=== PATIENT | male | born 1945 | race Hispanic/Latino ===

== ENCOUNTER 2020-02-05 15:02 | Outpatient (CLI) | payer MEDICARE ==
--- NOTE | 2020-02-05 16:18 | MRI ---
MRI OF THE LUMBAR SPINE: 02/05/20 PROVIDED CLINICAL HISTORY: Lumbar radiculopathy. FINDINGS: Five lumbar vertebral bodies are assumed. Lumbar alignment appears normal. Vertebral body heights are preserved. No focal concerning regional marrow signal abnormality. The conus medullaris is normal in signal and terminates at an appropriate level. Bilateral renal T2 hyperintensity statistically refle cts cysts but are incompletely characterized on the bases of this study. At L1-2, there is no significant central canal or foraminal narrowing apparent. At L2-3, end plate degenerative changes and a broad based disc bulge are seen without evidence for si gnificant central canal or foraminal narrowing. At L3-4, there is disc space height loss and end plate degenerative change with a broad based disc os teophyte complex and bilateral facet arthritis. There is effacement of the ventral spinal canal and a pproximation of the traversing L4 nerve roots within their lateral recesses. There is mild bilateral foraminal narrowing. At L4-5, there is a broad based disc bulge and bilateral facet arthritis. There is moderate/severe ce ntral canal stenosis. There is severe left and moderate right foraminal narrowing. At L5-S1, there is a broad based disc bulge with a superimposed central disc herniation. There is mod erate/severe central canal stenosis. There is severe bilateral left and moderate right foraminal john rowing. IMPRESSION: Advanced multilevel lumbar disc and facet degenerative change producing canal and foraminal narrowing as described. POS: FLAKITA
== END 2020-02-05 15:03 | disposition home or self-care (01) ==
LOC: TBSIIMAG 15:02
PROVIDERS: ATTEND Neurological Surgery
DX: M47.26 Other spondylosis with radiculopathy, lumbar region (principal); M51.16 Intervertebral disc disorders with radiculopathy, lumbar region; M48.061 Spinal stenosis, lumbar region without neurogenic claudication; M48.07 Spinal stenosis, lumbosacral region
CPT/HCPCS: 72148

== ENCOUNTER 2020-03-10 08:50 | Outpatient (CLI) | payer MEDICARE, OTHER ==
[2020-03-11 11:10] LABS: SARS-CoV-2 MS2 Positive; SARS-CoV-2 N Gene Negative; SARS-CoV-2 S Gene Negative; SARS-CoV-2 orf1ab Negative
== END 2020-03-10 08:51 | disposition home or self-care (01) ==
LOC: LABBT 08:50
PROVIDERS: ATTEND Neurological Surgery
DX: Z01.818 Encounter for other preprocedural examination (principal); Z11.59 Encounter for screening for other viral diseases; M48.061 Spinal stenosis, lumbar region without neurogenic claudication
CPT/HCPCS: 93005; U0003; 87635; 93010

== ENCOUNTER 2020-03-12 05:48 | Day surgery (SDC) | payer MEDICARE ==
[2020-03-10 15:21] VITALS: BMI 31.8
--- NOTE | 2020-03-11 13:20 | HP ---
HISTORY OF PRESENT ILLNESS: Mr. Macias is a very pleasant 75-year-old man referred to us for progressive bilateral lower extremity weakness and fatigue. This started early this year after being kicked by a cow to the left knee, but he feels he rehabbed and recovered well from this, though states that several weeks later that is when he developed a footdrop. This was soon followed by more proximal left lower extremity weakness and now he has come to have the same syndrome on the right lower extremity. He states that when he first gets up in the morning he does well, does not feel any of this fatigue or weakness, but then as the day progresses that becomes rather severe and he becomes dependent upon a walking stick or cane to ambulate. He does also have bilateral lower back pain and pain that radiates sharply into the bilateral buttocks, but this is intermittent in nature. We have a new MRI from [place] reveals rather profound spinal stenosis from L4-S1 that I feel is syndrome of symptoms. He states prior to this, he was having no trouble whatsoever. Examination is deferred for tele health visit. PAST MEDICAL HISTORY: Significant for hypertension, gout, prior cancer diagnosis. PAST SURGICAL HISTORY: Herniorrhaphy; knee replacements, bilateral; prostatectomy. CURRENT MEDICATIONS: 1. Aleve. 2. Levothyroxine. 3. Amlodipine. 4. Benazepril. ALLERGIES: NO KNOWN DRUG ALLERGIES. ASSESSMENT: Lumbar spinal stenosis and progressive neurologic decline. PLAN: Dr. Garibay met with the patient, reviewed imaging, and advocated for an L4-S1 decompression. He explained to the patient the risks, benefits, and alternatives to the procedure. The patient expressed understanding and would like to move forward with surgery as discussed. I do believe that the patient is mentally competent and capable of making medical decisions for himself. We will move forward with surgery as planned. Job ID: [id number]
[2020-03-12] MEDS ORDERED: EPINEPHrine 1 MG/ML AMP ONE (06:10)
[2020-03-12] MEDS ORDERED: Bupivacaine PF 0.5% 30 ML VIAL ONE (06:10)
[2020-03-12] MEDS ORDERED: Thrombin 5000 UNITS/5 ML VIAL ONE (06:10)
[2020-03-12] MEDS ORDERED: Fentanyl 100 MCG/2 ML VIAL ONE (06:31)
--- NOTE | 2020-03-12 08:54 | OP ---
DATE OF PROCEDURE: 03/12/2020 DIRECT MAIL MANAGER: Cisco Hartmann PA-C INDICATION: Pain. DIAGNOSIS: Lumbar stenosis with neurogenic claudication. PROCEDURE PERFORMED: L4 through S1 decompression. ANESTHESIA: General. DESCRIPTION OF PROCEDURE: The patient was brought into the operating room and placed under general anesthesia. He was flipped from the supine to prone position on the operating room table. A linear incision was planned spanning L4 through S1. After prepping and draping and after an appropriate operative pause, the incision was created. The soft tissues were swept away from midline. Self-retaining retractors were placed in the wound for optimal exposure. After confirming the appropriate level with C-arm fluoroscopy, an Adson rongeur was used to move the spinous process of L5, the inferior aspect of L4, and the superior aspect of S1. A high-speed cutting drill bit as well as 2, 3, and 4 mm Kerrisons were then used to complete the laminectomy spanning the L4-5 and L5-S1 segments. The laminectomy was extended laterally to encompass the medial aspect of the facet joints to further decompress the lateral recesses. After completing the decompression, the wound was irrigated. Hemostasis was maintained throughout. The wound was then closed in anatomic layers and a pressure dressing was applied. There were no known procedural complications. Job ID: [id number]
[2020-03-12] MEDS ORDERED: HYDROcodone/Acetaminophen 5/325 mg Tablet ONE (09:49)
[2020-03-12] MEDS ORDERED: Rocuronium Bromide 10 MG/ML (10ML VIAL) ONE (12:03)
[2020-03-12] MEDS ORDERED: Esmolol 100 MG/10 ML VIAL ONE (12:03)
[2020-03-12] MEDS ORDERED: EPHEDRINE 25 MG/5 ML SYRINGE ONE (12:03)
[2020-03-12] MEDS ORDERED: Dexamethasone 20 MG/5 ML VIAL ONE (12:03)
[2020-03-12] MEDS ORDERED: Ondansetron PF 4 MG/2 ML Vial ONE (12:03)
[2020-03-12] MEDS ORDERED: Ketorolac Tromethamine 30 MG/ML VIAL ONE (12:03)
[2020-03-12] MEDS ORDERED: Glycopyrrolate 0.2 MG/ML 5 ML SYRINGE ONE (12:03)
[2020-03-12] MEDS ORDERED: PROPOFOL 200 MG/20 ML VIAL ONE (12:03)
[2020-03-12] MEDS ORDERED: Lidocaine 1% PF 5 ML VIAL ONE ×2 (12:03)
== END 2020-03-12 11:20 | disposition home or self-care (01) ==
LOC: SDC 05:48
PROVIDERS: ATTEND Neurological Surgery
PROC: 01NB0ZZ Release Lumbar Nerve, Open Approach (ICD-10-PCS; principal; 2020-03-12)
DX: M48.062 Spinal stenosis, lumbar region with neurogenic claudication (principal); M54.16 Radiculopathy, lumbar region; M21.371 Foot drop, right foot; M21.372 Foot drop, left foot; I10 Essential (primary) hypertension; M10.9 Gout, unspecified; Z79.899 Other long term (current) drug therapy
CPT/HCPCS: 76000; J0171; J0690; J1100; J1885; J2001; J2405; J2704; J3010; S0020

== ENCOUNTER 2020-08-06 07:34 | Outpatient (CLI) | payer MEDICARE, OTHER ==
[2020-08-07 12:52] LABS: SARS-CoV-2 MS2 Positive; SARS-CoV-2 N Gene Negative; SARS-CoV-2 S Gene Negative; SARS-CoV-2 by NAA Not Detected (NotDetected); SARS-CoV-2 orf1ab Negative
== END 2020-08-06 07:35 | disposition home or self-care (01) ==
LOC: LABBT 07:34
PROVIDERS: ATTEND Neurological Surgery
DX: M48.02 Spinal stenosis, cervical region (principal); Z20.828 Contact with and (suspected) exposure to other viral communicable diseases
CPT/HCPCS: 87635; U0003

== ENCOUNTER 2020-08-11 06:25 | Inpatient (IN) | payer MEDICARE ==
[2020-08-11] MEDS ORDERED: Thrombin 5000 UNITS/5 ML VIAL ONE (06:37)
[2020-08-11] MEDS ORDERED: Fentanyl 250 MCG/5 ML VIAL ONE (07:47)
[2020-08-11] MEDS ORDERED: Tamsulosin HCl 0.4 MG CAP ONE (09:53)
[2020-08-11] MEDS ORDERED: Fentanyl 100 MCG/2 ML VIAL ONE (09:58)
--- NOTE | 2020-08-11 09:58 | OP ---
DATE OF PROCEDURE: 08/11/2020 ENROLLMENT SPECIALIST: Cisco Hartmann PA-C INDICATION FOR PROCEDURE: Prevent neurologic decline. DIAGNOSIS: Cervical spondylotic myelopathy. PROCEDURE PERFORMED: Anterior cervical diskectomy and fusion, C3-C4. ANESTHESIA: General. DESCRIPTION OF PROCEDURE: The patient was brought into the operating room and placed under general anesthesia. He was placed on table in supine position. A transverse incision was planned over the lateral aspect of the neck on the right. After prepping and draping and after an appropriate preoperative pause, the incision was created. The underlying platysma muscle identified and incised. A blunt tissue plane anterior to the sternocleidomastoid muscle was used to gain access to the prevertebral space. A C-arm image was obtained and confirming the appropriate level. After confirming the appropriate level, an annulotomy was performed at the C3-C4 disk space. Disk material as well as anterior and posterior osteophytes were removed. After completing the decompression, a 7-mm lordotic PEEK cage packed with allograft and autograft material was placed within the interbody space. A separate anterior cervical plate was then fashioned to the front of spine and secured with a total of 4 fixed screws. Midline and lateral structures were inspected and found to be free from significant trauma. The wound was irrigated. Hemostasis was maintained throughout. The wound was then closed in anatomic layers, and a pressure dressing was applied. There were no known procedural complications. Job ID: [id number]
[2020-08-11] MEDS ORDERED: PROPOFOL 200 MG/20 ML VIAL ONE (10:15)
[2020-08-11] MEDS ORDERED: Ondansetron PF 4 MG/2 ML Vial ONE (10:15)
[2020-08-11] MEDS ORDERED: PHENYLEPHRINE-NS 100 MCG/ML 10 ML SYRINGE ONE (10:15)
[2020-08-11] MEDS ORDERED: Lidocaine 1% PF 5 ML VIAL ONE (10:15)
[2020-08-11] MEDS ORDERED: Glycopyrrolate 0.2 MG/ML 5 ML SYRINGE ONE (10:15)
[2020-08-11] MEDS ORDERED: EPHEDRINE 25 MG/5 ML SYRINGE ONE (10:15)
[2020-08-11] MEDS ORDERED: Rocuronium Bromide 10 MG/ML (10ML VIAL) ONE (10:15)
[2020-08-11] MEDS ORDERED: Dexamethasone 20 MG/5 ML VIAL ONE (10:15)
[2020-08-11] MEDS ORDERED: Dexamethasone 4 mg/ml Vial ONE (10:43)
[2020-08-11 15:13] VITALS: BMI 27.3
[2020-08-11] MEDS ORDERED: tiZANidine HCl 4 MG TAB PO PRN (15:24)
[2020-08-11] MEDS ORDERED: Ondansetron PF 4 MG/2 ML Vial IVP PRN (15:24)
[2020-08-11] MEDS ORDERED: Mag-Al 1200 mg/1200 mg/30 ML UDCUP PO PRN (15:30)
[2020-08-11] MEDS ORDERED: diphenhydrAMINE 50 MG/ML VIAL IVP PRN (15:30)
[2020-08-11] MEDS ORDERED: Morphine 2 MG/ML VIAL SLOW IVP PRN (15:30)
[2020-08-11] MEDS ORDERED: Acetaminophen/Codeine 30-300mg Tablet PO PRN ×2 (15:30)
[2020-08-11] MEDS ORDERED: diphenhydrAMINE 25 MG CAP PO PRN (15:30)
[2020-08-11] MEDS ORDERED: Morphine 4 MG/ML VIAL SLOW IVP PRN (15:30)
[2020-08-11] MEDS ORDERED: Acetaminophen 325 MG TAB PO PRN (15:30)
[2020-08-11] MEDS ORDERED: Acetaminophen 650 MG Suppository PR PRN (15:30)
[2020-08-11] MEDS: Sodium Chloride 0.9% 1,000 ML IV SCH (15:38)
[2020-08-11] MEDS: CEFAZOLIN 2 GM in Premix Bag 1 BAG IVPB SCH (20:08)
[2020-08-12] MEDS: CEFAZOLIN 2 GM in Premix Bag 1 BAG IVPB SCH (03:46)
[2020-08-12] MEDS: Sodium Chloride 0.9% 1,000 ML IV SCH ×2 (04:06→18:00)
[2020-08-12] MEDS: Ketorolac Tromethamine 30 MG/ML VIAL IVP SCH ×3 (09:11→19:42)
[2020-08-12] MEDS: Tamsulosin HCl 0.4 MG CAP PO SCH (13:43)
[2020-08-12] MEDS ORDERED: FLU VACC QS2020-21(65YR UP)/PF 240 MCG/0.7 ML SYRINGE IM ONE (15:15)
[2020-08-13] MEDS: Ketorolac Tromethamine 30 MG/ML VIAL IVP SCH ×2 (01:47→08:27)
[2020-08-13] MEDS: Tamsulosin HCl 0.4 MG CAP PO SCH (03:04)
[2020-08-13] MEDS: Sodium Chloride 0.9% 1,000 ML IV SCH ×2 (04:51→19:32)
[2020-08-14] MEDS: Tamsulosin HCl 0.4 MG CAP PO SCH (05:41)
[2020-08-14] MEDS ORDERED: CEFAZOLIN 2 GM in Premix Bag 1 BAG IVPB SCH (09:15)
[2020-08-14] MEDS: Sodium Chloride 0.9% 1,000 ML IV SCH ×2 (11:18→16:10)
--- NOTE | 2020-08-14 12:33 | PRG ---
DATE OF SERVICE: 08/14/2020 Madeline Macias is a 75-year-old gentleman, known to me, for ACDF at C3-4 performed earlier this week. In the postoperative setting, he has had substantial degree of postoperative dysphagia. He has failed swallow evaluation, but does continue to improve. He failed another swallow evaluation yesterday. Given his overall lack of nutrition, I had a lengthy conversation with him and his both yesterday and today regarding placement of a PEG tube, which I believe to be a temporary measure. This will allow us to get him home in his home environment to continue to recover. Neurologically, he is doing great. He has been mobile as I would want him to be after surgery of this nature. I spoke with Dr. Malagon this morning. He will have a conversation with him about placing a PEG tube today with hopefully plans to discharge as early as today and not tomorrow. We do have dietary on board as well. Job ID: [id number]
[2020-08-14] MEDS ORDERED: PROPOFOL 200 MG/20 ML VIAL ONE (12:36)
--- NOTE | 2020-08-14 14:56 | OP ---
DATE OF PROCEDURE: 08/14/2020 PREPROCEDURE DIAGNOSES: 1. Oropharyngeal dysphagia after ACDF, hardware placement in cervical spine. 2. Concern for aspiration on modified barium swallow and Speech Pathology evaluation. POSTPROCEDURE DIAGNOSES: 1. Normal EGD. 2. PEG tube placement by Ponsky pull technique. ANESTHESIA: TIVA. PROPHYLAXIS: Ancef 2 g IV. RECOMMENDATIONS: 1. The patient and family education on tube feeds, use and cleaning of PEG. 2. Follow up in my office in 4 to 6 weeks for removal if no further issues with dysphagia. 3. He will be able to be discharged within 24 hours. PROCEDURE IN DETAIL: After the patient was informed of the risks, benefits, and possible complications of endoscopy including perforation, reaction to medication, and aspiration, informed consent was obtained. The patient was brought to endoscopy suite, where he was sedated in gradual fashion. Once he was comfortable, a bite block was placed in the incisural orifice. The endoscope was advanced through the bite block into the esophagus, stomach, into the second and third portions of the duodenum and slowly removed. There was good visualization of the mucosa. There were no abnormalities in the pharynx or proximal esophagus. The stomach and duodenum were normal to the 2nd and 3rd portions. Retroflexed views were normal. An adequate place for PEG tube placement was identified by finger indentation and transillumination, and the PEG tube was placed by Ponsky pull technique. Second-look confirmed good placement. The scope was removed. The patient tolerated the procedure well. There were no complications. Job ID: [id number]
[2020-08-15] MEDS: Tamsulosin HCl 0.4 MG CAP PO SCH (06:06)
[2020-08-15 07:35] VITALS: BP 118/72; TEMP 98.9
--- NOTE | 2020-08-15 10:15 | PRG ---
DATE OF SERVICE: 08/15/2020 Mr. Macias is now 5 days status post ACDF for cervical spondylotic myelopathy. His postoperative dysphagia and tongue dysfunction are improving, but not to the point where he can safely swallow. He did have a PEG tube placed yesterday. We will discharge him home today. Neurologically, he is grossly intact. His preoperative symptoms of myelopathy are improving. Specifically, he notes increased dexterity of the hands, less numbness, and more agility. The hypoglossal nerve palsy immediately preoperatively has improved substantially such that his tongue projects almost to midline at this point in time. He still has a slight degree of dysarthria. I am very optimistic that will continue to improve as well as the postoperative swelling from his high cervical ACDF. Job ID: [id number] [facility]
--- NOTE | 2020-08-15 17:53 | CON ---
DATE OF CONSULTATION: 08/15/2020 HISTORY: Mr. Correa is ready to go home. He has had education how to take care of his PEG and how to use it. He has seen a dietitian. PHYSICAL EXAMINATION: VITAL SIGNS: Stable. ABDOMEN: Soft, nontender. PEG tube site bumper loosened. ASSESSMENT: Status post PEG tube after dysphagia occurring in the postoperative state after an ACDF repair surgery. RECOMMENDATIONS: Tube feeds as long as needed. He can return to our office for problems with the PEG or to have the PEG removed after six weeks. Job ID: [id number]
--- NOTE | 2020-08-17 01:11 | PQF ---
CLINICAL DOCUMENTATION CLARIFICATION FORM: Dear : Carlos Manuel Garibay Date / Time: 08/17/2020 Please exercise your independent, professional judgment in responding to the clarification form. Clinical indicators are provided on the bottom of this form for your review Please check appropriate box(es): [ X ] Dysphagia is a complication of current anterior cervical diskectomy and fusion surgery [ ] Dysphagia is not a complication of current anterior cervical diskectomy and fusion surgery [ ] Other diagnosis [ ] Unable to determine In addition, please specify: Present on Admission (POA): [ ] Yes [X ] No [ ] Unable to determine To be completed by CDI/Coding staff for physician review: Present Clinical Indicators - Signs / Symptoms / Labs Results and Location in Medical Record [ x ] In the postoperative setting, he has had substantial degree of postoperative dysphagia. Has failed swallow evaluation, but does continue to improve. Failed another swallow evaluation yesterday Progress note 08/14 by Carlos Manuel Garibay MD [ x ] His postoperative dysphagia and tongue dysfunction are improving, but not to the point where he can safely swallow. Did have a PEG tube placed yesterday Progress note 08/15 by Carlos Manuel Garibay MD [ x ] Status post PEG tube after dysphagia occurring in the postoperative state after an ACDF repair surgery Consult 08/15 by Be Malagon MD Present Risk Factors Results and Location in Medical Record [ x ] Anterior cervical diskectomy and fusion, C3-C4 OP report 08/11 by Carlos Manuel Garibay MD Present Treatments Results and Location in Medical Record [ x ] PEG tube placement OP report 08/14 by Be Malagon MD [ x ] Modified barium swallow and speech pathology evaluation OP report 08/14 by Be Malagon MD CDS/Sort Worker Signature: [id number] Phone #: Date/Time: 08/17/2020 This is a permanent part of the Medical Record [facility]
--- NOTE | 2020-08-18 15:17 | DIS ---
DATE OF ADMISSION: 08/12/2020 DATE OF DISCHARGE: 08/15/2020 HOSPITAL COURSE: Mr. Macias was admitted on August 12, 2020, following ACDF, but was kept in the hospital afterward for significant issues with dysphagia and what appears to be hypoglossal nerve distribution and weakness on the right. His hospital course was uncomplicated other than persistent dysphagia. Consultations ordered to Speech Therapy and then ultimately to Gastroenterology for consideration of placement of PEG tube. This was all to be done on August 14. Subsequent discharge on August 15 swallowing dysfunction and persistent hypoglossal nerve dysfunction, we also arranged for home health and ongoing prescriptions for tube feeds. We anticipate that it is possible he may need this up to 3 to 6 months after surgery depending on his recovery. We will make continued documentation of the necessity for this as it is hard to predict the speed of his recovery and the patient was ultimately discharged to home with tube feed set up and outpatient followup planned in 2 weeks. Job ID: [id number]
== END 2020-08-15 13:20 | disposition home or self-care (01) | DRG 982 ==
LOC: SDC 06:25 → ONC 13:19 → OBSVTOIN 08-12 13:33
PROVIDERS: ADMIT Neurological Surgery; ATTEND Neurological Surgery
PROC: 0RG10A0 Fusion of Cervical Vertebral Joint with Interbody Fusion Device, Anterior Approach, Anterior Column, Open Approach (ICD-10-PCS; principal; 2020-08-11)
PROC: 0RB30ZZ Excision of Cervical Vertebral Disc, Open Approach (ICD-10-PCS; 2020-08-11)
PROC: 0DH63UZ Insertion of Feeding Device into Stomach, Percutaneous Approach (ICD-10-PCS; 2020-08-14)
DX: K91.89 Other postprocedural complications and disorders of digestive system (principal); M47.12 Other spondylosis with myelopathy, cervical region; G58.8 Other specified mononeuropathies; R13.12 Dysphagia, oropharyngeal phase; Z96.653 Presence of artificial knee joint, bilateral; Y83.8 Other surgical procedures as the cause of abnormal reaction of the patient, or of later complication, without mention of misadventure at the time of the procedure
CPT/HCPCS: 76000; 96365; 96375; C1713; C1776; G0378; J0690; J1100; J1885; J2405; J2704; J3010

== ENCOUNTER 2020-09-05 13:43 | Outpatient (CLI) | payer MEDICARE ==
[2020-09-06 16:11] LABS: SARS-CoV-2 MS2 Positive; SARS-CoV-2 N Gene Negative; SARS-CoV-2 S Gene Negative; SARS-CoV-2 by NAA Not Detected (NotDetected); SARS-CoV-2 orf1ab Negative
== END 2020-09-05 13:44 | disposition home or self-care (01) ==
LOC: LABBT 13:43
PROVIDERS: ATTEND Physician Assistant
DX: R13.10 Dysphagia, unspecified (principal); Z20.828 Contact with and (suspected) exposure to other viral communicable diseases
CPT/HCPCS: 87635; U0003

== ENCOUNTER 2020-09-08 09:24 | Outpatient (CLI) | payer MEDICARE ==
--- NOTE | 2020-09-09 17:40 | RAD ---
Modified barium swallow with speech therapist: 09/09/2020 HISTORY: 75-year-old male with dysphagia, unspecified R 13.10 Feeding difficulties R 63.3 FINDINGS: ACDF hardware at C3-4. Recently postoperative prevertebral soft tissue swelling, encroaching upon the hypopharynx. First cine shows barium already filling the vallecula, with barium penetrating into the larynx, to th e level of the vocal cords, and a small amount of barium entering the upper esophagus. Although there is good laryngeal elevation, there is somewhat decreased hyoid protraction. Epiglottic inversio n appears to be limited. Subsequent third cine shows barium already lining the trachea. On the nectar swallow cine, there is an even greater amount of barium in the trachea, as well as edward tional penetration and aspiration. There is residue in the vallecula and piriform sinuses on all swallows. This is greatest in the kwong cula. In a later puree swallow cine, there is additional yanira aspiration into the trachea. There is no coughing on any of these cine series. IMPRESSION: 1.) Multiple episodes of penetration and silent aspiration. 2) pharyngeal dysphagia with limited epiglottic inversion. 3) pharyngeal dysphagia with significant residue in piriform sinuses, and especially vallecula. 4) status post anterior cervical discectomy and fusion at C3-4, with associated recent postoperative prevertebral space soft tissue swelling, encroaching upon the hypopharynx. 5) see separate, complete report by speech therapist.
== END 2020-09-08 09:25 | disposition home or self-care (01) ==
PROVIDERS: ATTEND Physician Assistant
DX: R13.13 Dysphagia, pharyngeal phase (principal); M79.89 Other specified soft tissue disorders; J38.7 Other diseases of larynx; Z98.1 Arthrodesis status; Z98.890 Other specified postprocedural states
CPT/HCPCS: 74230

== ENCOUNTER 2022-05-14 08:29 | Outpatient (CLI) | payer MEDICARE ==
[2022-05-14] MEDS ORDERED: Iopamidol 370 76% 100 ML VIAL ONE (10:39)
== END 2022-05-14 08:30 | disposition home or self-care (01) ==
LOC: MRI 08:29
PROVIDERS: ATTEND Psychiatry & Neurology Neurology
DX: R26.9 Unspecified abnormalities of gait and mobility (principal); M48.061 Spinal stenosis, lumbar region without neurogenic claudication; M48.07 Spinal stenosis, lumbosacral region; Z98.890 Other specified postprocedural states
CPT/HCPCS: 70470; 72148; 82565; Q9967

== ENCOUNTER 2023-01-13 08:58 | Outpatient (CLI) | payer MEDICARE | END 2023-01-13 08:59 | disposition home or self-care (01) | LOC: CT 08:58 | PROVIDERS: ATTEND Surgery | DX: M48.02 Spinal stenosis, cervical region (principal); M54.6 Pain in thoracic spine; M47.812 Spondylosis without myelopathy or radiculopathy, cervical region; M50.31 Other cervical disc degeneration, high cervical region; M47.814 Spondylosis without myelopathy or radiculopathy, thoracic region; M51.34 Other intervertebral disc degeneration, thoracic region; G95.29 Other cord compression; G95.89 Other specified diseases of spinal cord; Z98.1 Arthrodesis status | CPT/HCPCS: 72125; 72141; 72146 ==

== ENCOUNTER 2023-07-27 12:50 | Outpatient (CLI) | payer MEDICARE | END 2023-07-27 12:51 | disposition home or self-care (01) | LOC: MRI 12:50 | PROVIDERS: ATTEND Surgery | DX: M54.16 Radiculopathy, lumbar region (principal); M48.061 Spinal stenosis, lumbar region without neurogenic claudication; E88.89 Other specified metabolic disorders | CPT/HCPCS: 72148 ==

== ENCOUNTER 2024-04-03 08:43 | Inpatient (IN) | payer MEDICARE ==
[2024-04-02 09:14] VITALS: BMI 26.4
[2024-04-03] MEDS ORDERED: PROPOFOL 20 ML ONE (10:36)
[2024-04-03] MEDS ORDERED: Lidocaine 1% PF 5 ML VIAL ONE (10:36)
[2024-04-03] MEDS ORDERED: Fentanyl 250 MCG/5 ML VIAL ONE (10:36)
[2024-04-03] MEDS ORDERED: Rocuronium Bromide 10 MG/ML (10ML VIAL) ONE (10:36)
[2024-04-03] MEDS ORDERED: Dexmedetomidine 200 MCG/2 ML VIAL ONE (10:39)
[2024-04-03] MEDS ORDERED: Sodium Chloride 0.9% 100 ML ONE ×2 (10:39→12:02)
[2024-04-03] MEDS ORDERED: Glycopyrrolate 0.2 MG/ML 5 ML SYRINGE ONE ×2 (10:57→15:14)
[2024-04-03] MEDS ORDERED: NEOSTIGMINE 3 MG/3 ML SYRINGE ONE ×2 (10:57→15:14)
[2024-04-03] MEDS ORDERED: Ketorolac Tromethamine 30 MG (1 mL) VIAL ONE (11:06)
[2024-04-03] MEDS ORDERED: Lidocaine 2% PF 5 ML VIAL ONE (11:30)
[2024-04-03] MEDS ORDERED: Vancomycin 1 GM VIAL ONE (11:59)
[2024-04-03] MEDS ORDERED: Thrombin 5000 UNITS/5 ML VIAL ONE ×2 (11:59→14:41)
[2024-04-03] MEDS ORDERED: CEFAZOLIN 2 GM VIAL ONE (12:02)
[2024-04-03 12:03] LABS: #Basophils 0.03 10x3/uL (0.0-0.2); %Basophils 0.7 % (0.0-1.0); %Eosinophils 1.5 % (0.0-10.0); %Lymphocytes 17.8 % (21.0-51.0); %Monocytes 7.4 % (0.0-10.0); %Neutrophils 72.4 % (42.0-75.0); Hematocrit 41.8 % (42.0-52.0); Hemoglobin 14.7 g/dL (14.0-18.0); Mean Corpuscular HGB CONC 35.2 g/dL (32.0-36.0); Mean Corpuscular Hemoglobin 32.7 pg (27.0-31.0); Mean Corpuscular Volume 93.1 fL (78.0-98.0); Mean Platelet Volume 9.1 fL (7.4-10.4); Platelet Count 183 10x3/uL (130-400); RBC Distribution Width 13.4 % (11.5-14.5); Red Blood Cell (RBC) Count 4.49 mill/uL (4.70-6.10)
[2024-04-03 12:17] LABS: INR-International Normal Ratio 1.1; PTT 30.8 sec (22.9-36.1)
[2024-04-03 12:21] LABS: Anion Gap 14 mmol/L (10-20); BUN (Urea Nitrogen) 14 mg/dL (8.4-25.7); Calc. Creatinine Clearance 94 mL/min (70-130); Calcium 9.7 mg/dL (7.8-10.44); Carbon Dioxide 20 mmol/L (23-31); Chloride 102 mmol/L (98-107); Estimated GFR 91; Glucose 102 mg/dL (83-110); Sodium 132 mmol/L (136-145)
[2024-04-03] MEDS ORDERED: ePHEDrine Sulfate 50 MG/10 ML VIAL ONE (12:32)
[2024-04-03] MEDS ORDERED: Dexamethasone 20 MG/5 ML VIAL ONE (12:51)
[2024-04-03] MEDS ORDERED: PHENYLEPHRINE-NS 100 MCG/ML 10 ML SYRINGE ONE (12:59)
[2024-04-03] MEDS ORDERED: Ondansetron HCl/PF 4 MG/2 ML Vial IVP PRN (14:36)
[2024-04-03] MEDS ORDERED: Promethazine HCl 25 MG/ML VIAL IM PRN (14:36)
[2024-04-03] MEDS ORDERED: HYDROmorphone 2 MG/ML VIAL SLOW IVP PRN (14:36)
[2024-04-03] MEDS ORDERED: Ondansetron PF 4 MG/2 ML Vial ONE (14:52)
[2024-04-03] MEDS ORDERED: Ondansetron PF 4 MG/2 ML Vial IVP PRN (16:04)
[2024-04-03] MEDS ORDERED: diphenhydrAMINE 25 MG CAP PO PRN (16:04)
[2024-04-03] MEDS ORDERED: Morphine 2 MG/ML VIAL SLOW IVP PRN (16:04)
[2024-04-03] MEDS ORDERED: Milk Of Magnesia 30 ML UDCUP PO PRN (16:04)
[2024-04-03] MEDS ORDERED: Acetaminophen 325 MG TAB PO PRN (16:04)
[2024-04-03] MEDS ORDERED: hydrALAZINE 20 MG/ML VIAL SLOW IVP PRN (16:08)
[2024-04-03] MEDS ORDERED: fentaNYL 50 mcg/mL 1 mL Vial ONE ×3 (16:19→16:55)
[2024-04-03] MEDS: Sodium Chloride 0.9% 1,000 ML IV SCH (17:45)
[2024-04-03] MEDS: CEFAZOLIN 2 GM in Sodium Chloride 0.9% 100 ML IVPB SCH ×2 (17:46→20:54)
[2024-04-03] MEDS: Acetaminophen/Codeine 30-300mg Tablet PO PRN (18:45)
[2024-04-03] MEDS: Docusate 100 MG CAP PO SCH (20:40)
[2024-04-03] MEDS: Gabapentin 100 MG CAP PO SCH (20:41)
[2024-04-03] MEDS: tiZANidine HCl 4 MG TAB PO PRN (22:18)
[2024-04-04] MEDS: Levothyroxine 175 MCG TAB PO SCH (06:12)
[2024-04-04 07:05] LABS: #Basophils Less than 0.03 10x3/uL (0.0-0.2); #Eosinphils Less than 0.03 10x3/uL (0.0-0.7); %Lymphocytes 6.2 % (21.0-51.0); %Monocytes 6.8 % (0.0-10.0); %Neutrophils 86.7 % (42.0-75.0); Hematocrit 33.3 % (42.0-52.0); Hemoglobin 11.8 g/dL (14.0-18.0); Mean Corpuscular HGB CONC 35.4 g/dL (32.0-36.0); Mean Corpuscular Hemoglobin 32.9 pg (27.0-31.0); Mean Corpuscular Volume 92.8 fL (78.0-98.0); Mean Platelet Volume 9.6 fL (7.4-10.4); Platelet Count 157 10x3/uL (130-400); RBC Distribution Width 13.3 % (11.5-14.5); Red Blood Cell (RBC) Count 3.59 mill/uL (4.70-6.10)
[2024-04-04 07:36] LABS: Anion Gap 12 mmol/L (10-20); BUN (Urea Nitrogen) 11 mg/dL (8.4-25.7); Calc. Creatinine Clearance 99 mL/min (70-130); Calcium 8.3 mg/dL (7.8-10.44); Carbon Dioxide 20 mmol/L (23-31); Chloride 103 mmol/L (98-107); Estimated GFR 92; Glucose 115 mg/dL (83-110); Potassium 4.1 mmol/L (3.5-5.1); Sodium 131 mmol/L (136-145)
[2024-04-04] MEDS: Amlodipine 10 MG TAB PO SCH (08:24)
[2024-04-04] MEDS: Prenatal Vitamin 1 TAB PO SCH (08:24)
[2024-04-04] MEDS: Lisinopril 20 MG TAB PO SCH (08:25)
[2024-04-04] MEDS: Mirabegron ER 25 MG ER.TAB PO SCH (08:26)
[2024-04-04] MEDS: Cholecalciferol 1,000 UNITS (25 MCG) TAB PO SCH (08:26)
[2024-04-04] MEDS: HYDROcodone/Acetaminophen 7.5/325 mg Tablet PO PRN (14:01)
[2024-04-04] MEDS: traMADol HCl 50 MG TAB PO PRN (20:07)
[2024-04-05] MEDS: Cyanocobalamin (Vitamin B-12) 1,000 MCG TAB PO SCH (08:52)
[2024-04-05 10:49] LABS: #Basophils 0.03 10x3/uL (0.0-0.2); %Basophils 0.4 % (0.0-1.0); %Eosinophils 0.6 % (0.0-10.0); %Monocytes 8.9 % (0.0-10.0); %Neutrophils 78.8 % (42.0-75.0); Hematocrit 33.3 % (42.0-52.0); Hemoglobin 11.4 g/dL (14.0-18.0); Mean Corpuscular HGB CONC 34.2 g/dL (32.0-36.0); Mean Corpuscular Hemoglobin 32.9 pg (27.0-31.0); Mean Platelet Volume 9.3 fL (7.4-10.4); Platelet Count 146 10x3/uL (130-400); RBC Distribution Width 13.9 % (11.5-14.5); Red Blood Cell (RBC) Count 3.47 mill/uL (4.70-6.10)
[2024-04-05 11:06] LABS: Anion Gap 11 mmol/L (10-20); BUN (Urea Nitrogen) 16 mg/dL (8.4-25.7); Calc. Creatinine Clearance 91 mL/min (70-130); Calcium 8.2 mg/dL (7.8-10.44); Carbon Dioxide 24 mmol/L (23-31); Chloride 102 mmol/L (98-107); Estimated GFR 90; Glucose 114 mg/dL (83-110); Potassium 3.9 mmol/L (3.5-5.1); Sodium 133 mmol/L (136-145)
[2024-04-05] MEDS: Dexamethasone 4 MG TAB PO SCH (11:50)
[2024-04-05] MEDS: Pantoprazole DR 40 MG TAB PO SCH (11:50)
[2024-04-05 21:11] VITALS: TEMP 98.1
[2024-04-06 06:19] LABS: Anion Gap 12 mmol/L (10-20); BUN (Urea Nitrogen) 15 mg/dL (8.4-25.7); Calc. Creatinine Clearance 109 mL/min (70-130); Calcium 8.8 mg/dL (7.8-10.44); Carbon Dioxide 21 mmol/L (23-31); Chloride 101 mmol/L (98-107); Estimated GFR 95; Glucose 142 mg/dL (83-110); Potassium 3.8 mmol/L (3.5-5.1); Sodium 130 mmol/L (136-145)
[2024-04-06] MEDS: Pantoprazole DR 40 MG TAB PO SCH (09:02)
[2024-04-06] MEDS: Dexamethasone 1 MG TAB PO SCH (09:03)
[2024-04-06 11:38] VITALS: BP 126/74
[2024-04-07] MEDS ORDERED: Dexamethasone 1 MG TAB PO SCH (10:00)
[2024-04-08] MEDS ORDERED: Dexamethasone 1 MG TAB PO SCH (10:00)
== END 2024-04-06 12:24 | disposition home or self-care (01) | DRG 519 ==
LOC: SDC 08:43 → SURG B 16:04 → OBSVTOIN 04-04 12:40
PROVIDERS: ADMIT Surgery; ATTEND Surgery
PROC: 01NB0ZZ Release Lumbar Nerve, Open Approach (ICD-10-PCS; principal; 2024-04-03)
PROC: 00NY0ZZ Release Lumbar Spinal Cord, Open Approach (ICD-10-PCS; 2024-04-03)
PROC: 01NR0ZZ Release Sacral Nerve, Open Approach (ICD-10-PCS; 2024-04-03)
PROC: 0SB20ZZ Excision of Lumbar Vertebral Disc, Open Approach (ICD-10-PCS; 2024-04-03)
PROC: 0SB40ZZ Excision of Lumbosacral Disc, Open Approach (ICD-10-PCS; 2024-04-03)
DX: M48.062 Spinal stenosis, lumbar region with neurogenic claudication (principal); G99.2 Myelopathy in diseases classified elsewhere; I82.403 Acute embolism and thrombosis of unspecified deep veins of lower extremity, bilateral; M54.16 Radiculopathy, lumbar region; M48.02 Spinal stenosis, cervical region
CPT/HCPCS: 36415; 80048; 85025; 85610; 85730; 93005; 93010; 93970; 96374; 96376; A4314; C1713; C1889; G0378; J1100; J1885; J2001; J2405; J2704; J3010; J3370; J3490; J8540